=== PATIENT | female | born 2000 | race Two or more races ===

== ENCOUNTER 2025-01-28 10:29 | Emergency (ER) | payer OTHER ==
[~2025-01-28] VITALS: Ht 160 cm; Wt 56.7 kg
[2025-01-28 12:54] LABS: BASO % 0.3 % (0.1-1.2); EOS # 0.00 (0.04-0.54); EOS % 0.0 % (0.7-7.0); LYMPH # 1.82 (1.18-3.74); LYMPH % 18.5 % (19.3-53.1); MEAN PLATELET VOLUME 10.60 fl (9.4-12.4); MONO # 0.98 (0.24-0.82); MONO % 9.9 % (4.7-12.5); NEUT # 6.99 (1.56-6.13); NEUT % 71.0 % (34.0-71.1); RED CELL DISTRIBUTION WIDTH 12.1 % (11.6-14.4)
[2025-01-28 13:27] LABS: URINE APPEARANCE Cloudy; URINE BILIRRUBIN Negative (NEGATIVE); URINE BLOOD Small; URINE COLOR Yellow; URINE GLUCOSE Negative (NEGATIVE); URINE KETONE 15 (NEGATIVE); URINE LEUKOCYTE Moderate; URINE NITRATE Negative; URINE PROTEIN Trace (NEGATIVE); URINE UROBILINOGEN 0.2 E.U./dl
[2025-01-28 13:31] LABS: URINE EPITHELIAL CELLS 46.1 uL (0.0-38.8); URINE RBC 11.8 uL (0.0-20.8); URINE WBC 764.5 uL (0.0-23.2)
[2025-01-28 13:38] LABS: COVID-19 AG NEGATIVE (NEGATIVE)
[2025-01-28 13:45] LABS: URINE BACTERIA > 9821.5 uL (0.0-1933); URINE CAST 0.00 uL (0.0-1.40)
[2025-01-28] MEDS ORDERED: OSEL75CA PO (14:25)
[2025-01-28] MEDS ORDERED: GILTUSS COUGH-118 M1 PO (14:25)
[2025-01-28] MEDS ORDERED: ACETAMINOPHEN500 M1 PO (14:25)
[2025-01-28] MEDS ORDERED: OSELTAMIVIR PHOSPHATE 75 MG CAPSULE PO ONE ×2 (14:40→14:45)
[2025-01-28] MEDS ORDERED: LIDOCAINE HCL 1% 10ML VIAL ONE (14:57)
[2025-01-28] MEDS ORDERED: CEFTRIAXONE SODIUM 1,000 MG VIAL ONE (14:57)
[2025-01-28] MEDS ORDERED: CEFTRIAXONE SODIUM 1,000 MG VIAL IM ONE (15:00)
== END 2025-01-28 14:46 | disposition home or self-care (01) ==
LOC: ER 10:29
PROVIDERS: Preventive Medicine Public Health & General Preventive Medicine
DX: J10.1 Influenza due to other identified influenza virus with other respiratory manifestations (principal); Z20.822 Contact with and (suspected) exposure to COVID-19; D50.9 Iron deficiency anemia, unspecified